=== PATIENT | female | born 1975 | race Caucasian/White ===

== ENCOUNTER 2016-11-03 08:38 | Emergency (ER) | payer BC ==
[2016-11-03 09:01] VITALS: BP 120/73; PULSE 84; TEMP 98.1; BMI 42.5
[2016-11-03] MEDS ORDERED: KETOROLAC TROMETHAMINE 60 MG/2 ML VIAL IM ONE (09:44)
[2016-11-03] MEDS ORDERED: KETOROLAC TROMETHAMINE 60 MG/2 ML VIAL ONE (09:47)
--- NOTE | 2016-11-03 10:20 | PDOC ---
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 Patient presents to the emergency department with pain to lateral right leg radiating down right lateral leg into the foot. Pain started in May after a long road trip from [place]. Was seen a month later in the ER at [facility]. Was ruled out for DVT. Pain worsened yesterday after walking for prolonged periods with flat shoes on. Denies any shortness of breath or chest pain. No groin pain. Family History: Non-contributory Social History: Denies smoking, alcohol use, or IVDU Review of Systems GENERAL/CONSTITUTIONAL: No fever or chills. No weakness. No weight change. HEAD, EYES, EARS, NOSE AND THROAT: No change in vision. No ear pain or discharge. No sore throat. CARDIOVASCULAR: No chest pain or shortness of breath. RESPIRATORY: No cough, wheezing, or hemoptysis. GASTROINTESTINAL: No nausea, vomiting, diarrhea or constipation. No rectal bleeding. GENITOURINARY: No dysuria, frequency, or change in urination. MUSCULOSKELETAL: No joint or muscle swelling or pain. No neck pain, lower back pain. Pain radiating down right lateral leg and foot, no calf pain SKIN : No rash or easy bruising. NEUROLOGIC: No headache, vertigo, loss of consciousness, or loss of sensation. No numbness or tingling PSYCHIATRIC: No depression or anxiety. ENDOCRINE: No increased thirst. No abnormal weight change. HEMATOLOGIC/LYMPHATIC: No anemia, easy bleeding, or history of blood clots. ALLERGIC/IMMUNOLOGIC: No hives or skin allergy. No latex allergy. Physical Exam: GENERAL: The patient is awake, alert, and fully oriented, in no acute distress. HEAD: Normal with no signs of trauma. EYES: Pupils equal, round and reactive to light, extraocular movements intact, sclera anicteric, conjunctiva clear. ENT: Ears normal, nares patent, oropharynx clear without exudates. Moist mucous membranes. No uvula deviation NECK: Normal range of motion, supple without lymphadenopathy, JVD, or masses. LUNGS: Breath sounds equal, clear to auscultation bilaterally. No wheezes, and no crackles. HEART: Regular rate and rhythm, normal S1 and S2 without murmur, rub or gallop. ABDOMEN: Soft, nontender, normoactive bowel sounds. No guarding, no rebound. No masses. No bruising or abrasions RECTAL : Pt. refused MUSCULOSKELETAL: Normal range of motion, no edema. No clubbing or cyanosis. No cords, erythema, or tenderness. Spinal point tenderness, no tenderness over SI joint. Right knee with no bulge sign, good range of motion, patella stable. No calf pain or tenderness. Negative homans. NEUROLOGICAL: Cranial nerves II through XII grossly intact. Normal speech, normal gait. PSYCH: Normal mood, normal affect. SKIN: Warm, Dry, normal turgor, no rashes or lesions noted. Past History - Past Medical History Allergies/Adverse Reactions: Allergies Allergy/AdvReac Type Severity Reaction Status Date / Time Penicillins Allergy Verified 11/03/16 08:54 Home Medications: Ambulatory Orders Cholecalciferol (Vitamin D3) [Vitamin D -] 400 unit PO DAILY 11/03/16 Hydrochlorothiazide [Hctz -] 12.5 mg PO DAILY 11/03/16 Ibuprofen [Motrin -] 600 mg PO QID #28 tablet 11/03/16 CVA: No DVT: No HTN: No Hypercholesterolemia: No Other medical history: Arthritis - Psycho/Social/Smoking Cessation Hx Anxiety: No Suicidal Ideation: No Smoking Status: Yes Smoking History: Former smoker Have you smoked in the past 12 months: No Number of Cigarettes Smoked Daily: 2 If you are a former smoker, when did you quit?: 15yrs ago Information on smoking cessation initiated: No 'Breaking Loose' booklet given: 03/16/13 Hx Alcohol Use: No Drug/Substance Use Hx: No *Physical Exam - Vital Signs Last Vital Signs Temp Pulse Resp BP Pulse Ox 98.1 F 84 16 120/73 98 11/03/16 08:54 11/03/16 08:54 11/03/16 08:54 11/03/16 08:54 11/03/16 08:54 ED Treatment Course - Medications Given in the ED: ED Medications Discontinued Medications Generic Name Dose Route Start Last Admin Trade Name Freq PRN Reason Stop Dose Admin Ketorolac Tromethamine 60 mg 11/03/16 09:44 11/03/16 09:56 Toradol Injection - IM 11/03/16 09:45 60 mg ONCE ONE Administration Medical Decision Making - Medical Decision Making 11/03/16 10:20 A/P: Patient with clinical signs of sciatica, Toradol 60 mg IM times one given. We'll give patient name of orthopedic to follow-up patient has never seen orthopedics was given referral to PT only when twice and did not feel any better after session. Please see patient home with Motrin, follow-up with orthopedics. If any calf pain, chest pain, shortness of breath, or any other concerns should return immediately to ER. I discussed the physical exam findings, ancillary test results and final diagnoses with the patient. I answered all of the patient's questions. The patient was satisfied with the care received and felt comfortable with the discharge plan and treatment plan. The patient will call to arrange follow-up and will return to the Emergency Department with any new, persistent or worsening symptoms. *DC/Admit/Observation/Transfer Diagnosis at time of Disposition: Sciatic leg pain - Discharge Dispostion Disposition: HOME Condition at time of disposition: Good Admit: No - Prescriptions Prescriptions: Ibuprofen [Motrin -] 600 mg PO QID #28 tablet - Referrals Referrals: Madeline Restrepo MD [Primary Care Provider] - Benoit Alanis MD [Staff Physician] - - Patient Instructions Printed Discharge Instructions: DI for Sciatica, Sciatica (Alternative Therapy) - Post Discharge Activity Work/School Note: Back to Work
== END 2016-11-03 10:31 | disposition home or self-care (01) ==
LOC: JERFT 08:38
PROC: 3E0233Z Introduction of Anti-inflammatory into Muscle, Percutaneous Approach (ICD-10-PCS; principal; 2016-11-03)
DX: M54.31 Sciatica, right side (principal)
CPT/HCPCS: 99281-25

== ENCOUNTER 2019-04-06 22:32 | Emergency (ER) | payer BC ==
[2019-04-06] MEDS ORDERED: IBUPROFEN 800 MG/8 ML IJ IVPB ONE ×2 (22:45→22:47)
[2019-04-06] MEDS ORDERED: METHOCARBAMOL 500 MG TABLET PO ONE (22:45)
[2019-04-06 22:47] VITALS: BP 157/92; PULSE 105; TEMP 98.9; BMI 42.0
[2019-04-06] MEDS ORDERED: METHOCARBAMOL 500 MG TABLET ONE (22:47)
--- NOTE | 2019-04-06 23:10 | PDOC ---
Documentation entered by Valeria Fontenot SCRIBE, acting as scribe for Madie Pastor MD. Madie Pastor MD: This documentation has been prepared by the bintaibe, Valeria Fontenot SCRIBE, under my direction and personally reviewed by me in its entirety. I confirm that the documentation accurately reflects all work, treatment, procedures, and medical decision making performed by me. History of Present Illness - General Chief Complaint: Pain, Acute Stated Complaint: PAIN Time Seen by Provider: 04/06/19 22:35 History Source: Patient Exam Limitations: No Limitations - History of Present Illness Initial Comments: The patient is a 43-year-old female with no reported past medical history who presents to the emergency department with right lower back pain. The patient presents with R. lower back pain that radiates to the right lower abdominal/ inguinal region. The patient reports she woke up with the pain, however, the pain intensified around 5:00 pm to a sharp pain that feels like her ovaries are about burst that is aggravated with walking and sitting up, relief while lying down. The patient reports the pain is 10/10 in severity with aggravation. The patient reports associated symptoms of nausea. Denies fall, trauma, or lifting heavy lifting. Denies prior similar pain. Denies fever, chills, urinary symptoms. LMP: currently. Allergies: Penicillins. 04/06/19 22:57 Past History - Past Medical History Allergies/Adverse Reactions: Allergies Allergy/AdvReac Type Severity Reaction Status Date / Time Penicillins Allergy Verified 06/21/17 16:57 Home Medications: Ambulatory Orders Lidocaine 5% Patch [Lidoderm Patch -] 1 patch TP DAILY PRN #30 patch 04/07/19 Methocarbamol [Robaxin -] 500 mg PO TID PRN #21 tablet 04/07/19 Methylprednisolone [Medrol Dose Vitaliy] 4 mg PO ASDIR #21 tablet 04/07/19 Naproxen Sodium 220 mg PO BID PRN #30 tablet 04/07/19 Asthma: Yes CVA: No COPD: No DVT: No HTN: No Hypercholesterolemia: No - Psycho Social/Smoking Cessation Hx Smoking Status: Yes Smoking History: Never smoked Have you smoked in the past 12 months: No Number of Cigarettes Smoked Daily: 2 If you are a former smoker, when did you quit?: 15yrs ago 'Breaking Loose' booklet given: 03/16/13 Hx Alcohol Use: No Drug/Substance Use Hx: No Substance Use Type: None Review of Systems - Review of Systems Able to Perform ROS?: Yes Comments:: 04/06/19 22:57 Constitutional - Pt denies Fever, Chills, weakness, HEENT: denies vision changes, sore throat Respiratory: Denies cough, sob, hemoptysis Cardiac: denies chest pain, palpitations, lightheadedness, leg swelling Abd/GI: +nausea. denies abd pain, vomiting, blood per rectum, melena, diarrhea : denies dysuria, frequency, discharge Musculoskeletal - +lower back pain. denies back pain, joint swelling skin - denies bruising, erythema, rash neurological: denies headache, numbness, focal weakness, tingling, ataxia, weakness hematologic: denies anemia, easy bruising, easy bleeding *Physical Exam - Vital Signs Last Vital Signs Temp Pulse Resp BP Pulse Ox 98.9 F 105 H 16 157/92 100 04/06/19 22:35 04/06/19 22:35 04/06/19 22:35 04/06/19 22:35 04/06/19 22:35 - Physical Exam 04/06/19 22:57 GENERAL: Awake, alert and oriented. The patient is in no acute distress. ENT: Ears normal, nares patent, oropharynx clear without exudates. Moist mucous membranes. NECK: Normal range of motion, supple, no nuchal rigidity LUNGS: Breath sounds equal, clear to auscultation bilaterally. No wheezes, and no crackles. HEART: Regular rate and rhythm, normal S1 and S2 without murmur, rub or gallop. ABDOMEN: Soft, nontender, normoactive bowel sounds. No guarding, no rebound. No masses palpable. BACK: +R. Buttock area tenderness, no CVA tenderness, pain elicited with straight leg raise. EXTREMITIES: Normal range of motion, no edema. NEUROLOGICAL: sensation intact. Answering all questions. Cranial nerves II through XII grossly intact. Normal speech. No focal neurological deficits. SKIN: Warm, Dry, normal turgor, no rashes or lesions noted. ED Treatment Course - LABORATORY CBC & Chemistry Diagram: 04/06/19 23:00 04/06/19 23:00 - RADIOLOGY Radiology Studies Ordered: Category Date Time Status SPIRAL- RENAL-STONE CT [CT] Stat CT Scan 04/06/19 22:43 Ordered - Medications Given in the ED: ED Medications Discontinued Medications Generic Name Dose Route Start Last Admin Trade Name Bashir PRN Reason Stop Dose Admin Ibuprofen 800 mg 04/06/19 22:45 04/06/19 23:05 Caldolor Injection - IVPB 04/06/19 22:46 800 mg ONCE ONE Administration Methocarbamol 500 mg 04/06/19 22:45 04/06/19 23:05 Robaxin - PO 04/06/19 22:46 500 mg ONCE ONE Administration Medical Decision Making - Medical Decision Making 04/06/19 23:09 43 yo F presenting to the ER with a complaint of severe back pain radiating to her right lower abdomen She is currently on her menses 04/06/19 23:09 DD: Renal colic, Ovarian torsion, ruptured cyst, musculoskeletal pain Will do: Labs US CT Analgesia Re Assess 04/06/19 23:33 Laboratory Tests 04/06/19 04/06/19 04/06/19 23:00 23:00 23:00 WBC 10.8 Hgb 13.5 Hct 40.4 Plt Count 256 BUN 13.0 Creatinine 0.6 Urine Appearance Urine Blood Urine Nitrite Ur Leukocyte Esterase Urine RBC Urine WBC Urine HCG, Qual Negative 04/06/19 23:00 WBC Hgb Hct Plt Count BUN Creatinine Urine Appearance Cloudy Urine Blood 3+ H Urine Nitrite Negative Ur Leukocyte Esterase Negative Urine RBC 40-60 Urine WBC 2-5 Urine HCG, Qual CT pending 04/07/19 00:43 CT: EXAM: CT ABDOMEN WITHOUT CONTRAST AND CT PELVIS WITHOUT CONTRAST HISTORY: 43-Year-Old Female Flank Pain Right Flank Pain And Low Back Pain COMPARISON: None. FINDINGS: Mild basilar atelectasis. Lack of intravenous contrast limits this exam. Noncontrast evaluation liver gallbladder pancreas spleen and adrenal glands right kidney appear unremarkable. Mild lobulation of the left kidney midportion renal cortex on coronal image 70. No nephrolithiasis or hydronephrosis. Mild arteriosclerosis of the aorta. Lack of oral contrast limits this exam. Noncontrast evaluation stomach and small bowel appear unremarkable. Appendix is not identified. Moderate amount of gas and stool in the colon. Diverticulosis without diverticulitis. Heterogeneous density in the fundal uterine myometrium may be due to fibroids and other uterine masses cannot be excluded. Bladder appears unremarkable. No free air. No free fluid. No abscess. Moderate degenerative disease. IMPRESSION: No nephrolithiasis or hydronephrosis. Mild lobulation of the left kidney midportion renal cortex. Appendix is not identified Pt ambulatory to the bathroom Will discharge to home Discharge - Discharge Information Problems reviewed: Yes Clinical Impression/Diagnosis: Sciatic leg pain, Fibroid Condition: Stable Disposition: HOME - Admission No - Additional Discharge Information Prescriptions: Lidocaine 5% Patch [Lidoderm Patch -] 1 patch TP DAILY PRN #30 patch PRN Reason: Pain Methocarbamol [Robaxin -] 500 mg PO TID PRN #21 tablet PRN Reason: Pain Methylprednisolone [Medrol Dose Vitaliy] 4 mg PO ASDIR #21 tablet Naproxen Sodium 220 mg PO BID PRN #30 tablet PRN Reason: Pain - Follow up/Referral Referrals: Madeline Restrepo MD [Primary Care Provider] - Ludwig Saravia MD, FAANS [Staff Physician] - Gertrude Peres MD [Staff Physician] - Hector Snow MD [Staff Physician] - - Patient Discharge Instructions Patient Printed Discharge Instructions: DI for Uterine Fibroids, DI for Sciatica, DI for Back Pain With Sciatica, Sciatica (Alternative Therapy) Additional Instructions: Ms Cote Thank you for coming in to the ER today Please be sure to follow up with your PMD, the back pain specialist and the asset accountant Please return to the ER for any other concerns or complaints - Post Discharge Activity Work/Back to School Note: Back to Work
[2019-04-06 23:16] LABS: BASO % 2.1 % (0-2.0); EOS % 0.3 % (0-4.5); HEMATOCRIT 40.4 % (32.4-45.2); HEMOGLOBIN 13.5 GM/dl (10.7-15.3); LYMPH % 9.6 % (8-40); MCH 28.7 pg (25.7-33.7); MCHC 33.5 g/dl (32.0-36.0); MEAN CELL VOLUME 85.9 fl (80-96); MEAN PLT VOLUME 8.3 fl (7.5-11.1); MONO % 4.1 % (3.8-10.2); NEUT % 83.9 % (42.8-82.8); PLATELET COUNT 256 K/MM3 (134-434); RDW 12.6 % (11.6-15.6); WHITE BLOOD COUNT 10.8 K/mm3 (4.0-10.8)
[2019-04-06 23:27] LABS: EPITHELIAL CELLS FEW /hpf
[2019-04-06 23:28] LABS: ALBUMIN 3.9 g/dl (3.4-5.0); CALCIUM 8.7 mg/dl (8.5-10); CREATININE 0.6 mg/dl (0.55-1.3); TOT PROT 7.8 g/dl (6.4-8.2)
== END 2019-04-07 01:07 | disposition home or self-care (01) ==
LOC: FER 22:32
PROC: 3E033GC Introduction of Other Therapeutic Substance into Peripheral Vein, Percutaneous Approach (ICD-10-PCS; principal; 2019-04-06)
DX: M54.32 Sciatica, left side (principal); M54.31 Sciatica, right side; D25.9 Leiomyoma of uterus, unspecified; J45.909 Unspecified asthma, uncomplicated; Z88.0 Allergy status to penicillin
CPT/HCPCS: 36415; 74176-TC; 80053; 81003; 81015; 84703; 85025; 87086; 99283-25